=== PATIENT | male | born 1990 | race Caucasian/White ===

== ENCOUNTER 2023-01-06 07:05 | Outpatient (OUT) | payer BC, SELFPAY ==
[2023-01-06 07:24] LABS: Basophils Absolute Auto 0.1 10^3/uL (0.0-0.1); Basophils Percent Auto 0.6 % (0.2-2.0); Eosinophils Absolute Auto 0.2 10^3/uL (0.0-0.7); Eosinophils Percent Auto 2.4 % (0.9-7.0); Hematocrit 42.9 % (42.0-54.0); Hemoglobin 14.5 g/dL (14.0-18.0); Immature Granulocytes Abs Auto 0.03 10^3/uL (0.00-0.03); Immature Granulocytes Pct Auto 0.3 % (0.0-0.5); Lymphocytes Absolute Auto 3.4 10^3/uL (1.2-3.8); Lymphocytes Percent Auto 37.1 % (20.5-60.0); Mean Corpuscular HGB Conc 33.8 g/dL (29.9-35.2); Mean Corpuscular Hemoglobin 29.8 pg (25.9-34.0); Mean Corpuscular Volume 88.1 fL (80.0-94.0); Mean Platelet Volume 9.9 fL (9.5-13.5); Monocytes Absolute Auto 0.7 10^3/uL (0.3-0.8); Monocytes Percent Auto 7.1 % (1.7-12.0); Neutrophils Absolute Auto 4.8 10^3/uL (1.4-6.5); Neutrophils Percent Auto 52.5 % (43.0-75.0); Platelet Count 269 10^3/uL (150-450); Red Blood Count 4.87 10^6/uL (4.70-6.10); Red Cell Distribution Width 14.4 % (11.0-15.0); White Blood Count 9.2 10^3/uL (4.0-11.0)
[2023-01-06 08:04] LABS: Estimated Average Glucose 105 mg/dL; Glycohemoglobin A1C 5.3 % (4.5-6.2)
[2023-01-06 08:06] LABS: Alanine Aminotransferase 25 U/L (16-63); Albumin Level 3.7 g/dL (3.4-5.0); Alkaline Phosphatase 75 U/L (46-116); Anion Gap 11.7; Aspartate Amino Transferase 17 U/L (15-37); BUN Creatinine Ratio 10.6; Bilirubin Total 0.4 mg/dL (0.2-1.0); Calcium 8.7 mg/dL (8.5-10.1); Carbon Dioxide 26.4 mmol/L (21.0-32.0); Chloride 106 mmol/L (98-107); Estimated GFR (African America >60 (>=60); Estimated GFR (Non-African Ame >60 (>=60); Globulin 3.6 g/dL; Glucose 96 mg/dL (74-106); Potassium 4.1 mmol/L (3.5-5.1); Sodium 140 mmol/L (136-145); Total Protein 7.3 g/dL (6.4-8.2)
[2023-01-06 08:16] LABS: Chol HDL Ratio 5.6; Cholesterol 175 mg/dL (<=200); HDL Cholesterol 31 mg/dL (40-60); Triglycerides 228 mg/dL (<=150); VLDL CHOLESTEROL 45.6 mg/dL
[2023-01-06 08:22] LABS: Prostate Specific Antigen Scrn 0.82 ng/mL (<=4.00)
[2023-01-07 12:08] LABS: Insulin 24.2 uIU/mL (2.6-24.9)
== END 2023-01-06 07:06 | disposition home or self-care (01) ==
LOC: LAB 07:06
PROVIDERS: PCP Family Medicine; Visit Provider Family Medicine
DX: Z00.00 Encounter for general adult medical examination without abnormal findings (principal)
CPT/HCPCS: 36415; 80053; 80061; 83036; 83525; 84436; 84443; 84481; 85025; G0103

== ENCOUNTER 2023-05-31 10:49 | Outpatient (OUT) | payer SELFPAY ==
[2023-05-31 12:28] LABS: Free T3 5.52 pg/mL (2.18-3.98); Thyroid Stimulating Hormone 17.248 uIU/mL (0.358-3.740)
== END 2023-05-31 10:50 | disposition home or self-care (01) ==
PROVIDERS: PCP Family Medicine; Visit Provider Family Medicine
DX: E03.9 Hypothyroidism, unspecified (principal)
CPT/HCPCS: 36415; 84436; 84443; 84481

== ENCOUNTER 2024-01-16 15:27 | Outpatient (OUT) | payer BC, SELFPAY ==
[2024-01-16 16:11] LABS: Basophils Absolute Auto 0.1 10^3/uL (0.0-0.1); Basophils Percent Auto 0.6 % (0.2-2.0); Eosinophils Absolute Auto 0.2 10^3/uL (0.0-0.7); Hematocrit 44.4 % (42.0-54.0); Hemoglobin 15.2 g/dL (14.0-18.0); Immature Granulocytes Abs Auto 0.04 10^3/uL (0.00-0.03); Immature Granulocytes Pct Auto 0.4 % (0.0-0.5); Lymphocytes Absolute Auto 3.1 10^3/uL (1.2-3.8); Mean Corpuscular HGB Conc 34.2 g/dL (29.9-35.2); Mean Corpuscular Hemoglobin 29.9 pg (25.9-34.0); Mean Corpuscular Volume 87.4 fL (80.0-94.0); Mean Platelet Volume 10.5 fL (9.5-13.5); Monocytes Absolute Auto 0.6 10^3/uL (0.3-0.8); Monocytes Percent Auto 5.9 % (1.7-12.0); Neutrophils Absolute Auto 5.5 10^3/uL (1.4-6.5); Neutrophils Percent Auto 58.1 % (43.0-75.0); Platelet Count 248 10^3/uL (150-450); Red Blood Count 5.08 10^6/uL (4.70-6.10); Red Cell Distribution Width 13.2 % (11.0-15.0); White Blood Count 9.5 10^3/uL (4.0-11.0)
[2024-01-16 16:32] LABS: Estimated Average Glucose 103 mg/dL; Glycohemoglobin A1C 5.2 % (4.5-6.2)
[2024-01-16 17:05] LABS: Alanine Aminotransferase 30 U/L (16-63); Albumin Globulin Ratio 1.1; Albumin Level 3.7 g/dL (3.4-5.0); Alkaline Phosphatase 86 U/L (46-116); Anion Gap 13.5; Aspartate Amino Transferase 15 U/L (15-37); BUN Creatinine Ratio 10.9; Bilirubin Total 0.5 mg/dL (0.2-1.0); Calcium 8.6 mg/dL (8.5-10.1); Carbon Dioxide 26.8 mmol/L (21.0-32.0); Chloride 105 mmol/L (98-107); Chol HDL Ratio 6.1; Cholesterol 190 mg/dL (<=200); Estimated GFR (African America >60 (>=60); Estimated GFR (Non-African Ame >60 (>=60); Free T3 2.16 pg/mL (2.18-3.98); Globulin 3.4 g/dL; Glucose 90 mg/dL (74-106); HDL Cholesterol 31 mg/dL (40-60); Potassium 4.3 mmol/L (3.5-5.1); Sodium 141 mmol/L (136-145); Thyroid Stimulating Hormone 6.779 uIU/mL (0.358-3.740); Total Protein 7.1 g/dL (6.4-8.2); Triglycerides 229 mg/dL (<=150); VLDL CHOLESTEROL 45.8 mg/dL
== END 2024-01-16 15:28 | disposition home or self-care (01) ==
LOC: LAB 15:30
PROVIDERS: PCP Family Medicine; Visit Provider Family Medicine
DX: Z00.00 Encounter for general adult medical examination without abnormal findings (principal)
CPT/HCPCS: 36415; 80053; 80061; 83036; 84436; 84443; 84481; 85025

== ENCOUNTER 2024-01-17 16:39 | Outpatient (REF) | payer BC, SELFPAY ==
[2024-01-17 19:56] LABS: Internal Control Within Normal Limits; Occult Blood Negative
== END 2024-01-17 16:40 | disposition home or self-care (01) ==
LOC: LAB 16:39
PROVIDERS: PCP Family Medicine; Visit Provider Family Medicine
DX: Z00.00 Encounter for general adult medical examination without abnormal findings (principal)
CPT/HCPCS: G0328

== ENCOUNTER 2024-05-01 07:20 | Outpatient (OUT) | payer BC, SELFPAY ==
--- OUTSIDE RECORDS SUMMARY | 2024-05-01 07:28 | XMS_ITS | CCD ---
Author Organization [facility] Care Team Providers Care Manufacturer Representative Name Role Phone Emelia Langford Primary Care Provider DEVIN, PANCHO H. Referring Unavailable EMELIA LANGFORD Primary Care Unavailable DEVIN, PANCHO H. Admitting Unavailable DEVIN, PANCHO H. Attending Unavailable EMELIA LANGFORD Primary Care Unavailable DEVIN, PANCHO H. Attending Unavailable DEVIN, PANCHO H. Referring Unavailable EMELIA LANGFORD Primary Care Unavailable HOY ., DR KAPOOR Consulting Unavailable HOY ., DR KAPOOR Attending Unavailable HOY ., DR KAPOOR Admitting Unavailable HOY ., DR KAPOOR Primary Care Unavailable HOY ., DR KAPOOR Primary Care Unavailable HOY ., DR KAPOOR Consulting Unavailable HOY ., DR KAPOOR Attending Unavailable HOY ., DR KAPOOR Admitting Unavailable Allergies Allergy Classification Reported Allergen(s) Allergy Type Date of Onset Reaction(s) Facility (1 source) bee venom Propensity to adverse reactions to drug 02-08-2019 [place], [place] Medications Current Medications Medication Drug Class(es) Dates Sig (Normalized) Sig (Original) acetaminophen 325 mg / oxyCODONE hydrochloride 5 mg oral tablet (1 source) Opioid Agonist Start: 02-14-2019 End: 02-28-2019 take 1 tablet by mouth every eight hours as needed for pain, then take 1 tablet by mouth as needed for pain oxyCODONE-acetamin ophen (PERCOCET) 5-325 MG per tablet Indications: Post-op pain Take 1 tablet by mouth every 8 hours as needed for Pain for up to 14 days. Intended supply: 7 days. Take lowest dose possible to manage pain 42 tablet 0 02/14/2019 02/28/2019 Active cephalexin 500 mg oral capsule (1 source) Cephalosporin Antibacterial Start: 02-14-2019 End: 02-21-2019 take 1 capsule by mouth three times daily cephALEXin (KEFLEX) 500 MG capsule Take 1 capsule by mouth 3 times daily for 7 days 21 capsule 0 02/14/2019 02/21/2019 Active levothyroxine sodium 0.112 mg oral tablet (1 source) l-Thyroxine Start: 01-06-2019 take 1 tablet by mouth once daily levothyroxine (SYNTHROID) 112 MCG tablet Take 112 mcg by mouth daily 11 01/06/2019 Active sennosides, intermediate 8.6 mg oral tablet (1 source) Start: 02-14-2019 End: 02-28-2019 take 2 tablets by mouth twice daily senna (SENOKOT) 8.6 MG tablet Take 2 tablets by mouth 2 times daily for 14 days 56 tablet 0 02/14/2019 02/28/2019 Active Problems Active Problems Problem Classification Problem Date Documented Date Episodic/Chronic Gout and other crystal arthropathies (4 sources) Gout, unspecified; Translations: [GOUT UNSPECIFIED] Onset: 01-04-2022 Chronic Other upper respiratory infections (4 sources) Streptococcal pharyngitis; Translations: [STREPTOCOCCAL PHARYNGITIS] Onset: 09-06-2022 Episodic Residual codes; unclassified (1 source) Pain; Translations: [Pain] Episodic Spondylosis; intervertebral disc disorders; other back problems (2 sources) Prolapsed lumbar intervertebral disc; Translations: [Degeneration of lumbar intervertebral disc] Onset: 02-08-2019 02-08-2019 Chronic Thyroid disorders (1 source) Hypothyroidism, unspecified; Translations: [HYPOTHYROIDISM UNSPECIFIED] Onset: 01-06-2022 Chronic Past or Other Problems Problem Classification Problem Date Documented Da te Episodic/Chronic Diabetes mellitus without complication (1 source) Other abnormal glucose; Translations: [OTHER ABNORMAL GLUCOSE] Onset: 01-06-2022 Episodic Results Test Name Value Interpretation Reference Range Facil ity STREPT SCREENon 09-06-2022 STREP SCREEN A Positive Abnormal NEGATIVE [facility] Comment on above: Performed By: #### S SCRN #### [facility] [address] [place], [place] [address] Dr. Sol Desir INSULINon 01-05-2022 Insulin 29.6 uIU/mL Critically high 2.6-24.9 [facility] Comment on above: Performed By: #### I NSULIN #### [facility] [address] [address] [address] Sol Desir CBC AUTO DIFFon 01-04-2022 BASO # 0.0 103/ul Normal 0.0-0.1 [facility] Comment on above: Performed By: #### C BC #### [facility] [address] [address] [address] Sol Desir Basophils/100 WBC (Bld) 0.2 % Normal 0.2-2.0 [facility] Comment on above: Performed By: #### C BC #### [facility] [address] [place] [address] Dr. Sol Desir EO # 0.0 103/ul Normal 0.0-0.7 [facility] Comment on above: Performed By: #### C BC #### [facility] [address] [place] [address] Dr. Sol Desir Eosinophils/100 WBC (Bld) 0.2 % Critically low 0.9-7.0 [facility] Comment on above: Performed By: #### C BC #### [facility] [address] [place] [address] Dr. Sol Desir Erythrocyte distribution width (RBC) [Ratio] 13.3 % Normal 11.0-15.0 [facility] Comment on above: Performed By: #### C BC #### [facility] [address] [place] [address] Dr. Sol Desir Hematocrit (Bld) [Volume fraction] 41.6 % Critically low 42.0-54.0 [facility] Comment on above: Performed By: #### C BC #### [facility] [address] [place] [address] Dr. Sol Desir Hemoglobin (Bld) [Mass/Vol] 13.9 g/dL Critically low 14.0-18.0 [facility] Comment on above: Performed By: #### C BC #### [facility] [address] [place] [address] Dr. Sol Desir IG # 0.14 10e3/ul Critically high 0.00-0.03 [facility] Comment on above: Performed By: #### C BC #### [facility] [address] [place] [address] Dr. Sol Desir IG % 0.8 % Critically high 0.0-0.5 [facility] Comment on above: Performed By: #### C BC #### [facility] [address] [place] [address] Dr. Sol Desir LYMPH # 3.0 103/ul Normal 1.2-3.8 [facility] Comment on above: Performed By: #### C BC #### [facility] [address] [place] [address] Dr. Sol Desir Lymphocytes/100 WBC (Bld) 16.7 % Critically low 20.5-60.0 [facility] Comment on above: Performed By: #### C BC #### [facility] [address] [place] [address] Dr. Sol Desir MANUAL DIFF REQ NO Normal [facility] Comment on above: Performed By: #### C BC #### [facility] [address] [place] [address] Dr. Sol Desir MCH (RBC) [Entitic mass] 29.6 pg Normal 25.9-34.0 [facility] Comment on above: Performed By: #### C BC #### [facility] [address] [place] [address] Dr. Sol Desir MCHC (RBC) [Mass/Vol] 33.4 g/dL Normal 29.9-35.2 [facility] Comment on above: Performed By: #### C BC #### [facility] [address] [place] [address] Dr. Sol Desir MCV (RBC) [Entitic vol] 88.5 fL Normal 80.0-94.0 [facility] Comment on above: Performed By: #### C BC #### [facility] [address] [place] [address] Dr. Sol Desir MONO # 0.9 103/ul Critically high 0.3-0.8 [facility] Comment on above: Performed By: #### C BC #### [facility] [address] [address] [address] Sol Desir Monocytes/100 WBC (Bld) 5.0 % Normal 1.7-12.0 [facility] Comment on above: Performed By: #### C BC #### [facility] [address] [address] [address] Sol Desir NEUT # 13.8 103/ul Critically high 1.4-6.5 [facility] Comment on above: Performed By: #### C BC #### [facility] [address] [place] [address] Dr. Sol Desir Neutrophils/100 WBC (Bld) 77.1 % Critically high 43.0-75.0 [facility] Comment on above: Performed By: #### C BC #### [facility] [address] [place] [address] Dr. Sol Desir Platelet mean volume (Bld) [Entitic vol] 9.7 fL Normal 9.5-13.5 [facility] Comment on above: Performed By: #### C BC #### [facility] [address] [address] [address] Sol Desir PLT 329 103/ul Normal 150-450 [facility] Comment on above: Performed By: #### C BC #### [facility] [address] [place] [address] Dr. Sol Desir RBC 4.70 106/ul Normal 4.70-6.10 [facility] Comment on above: Performed By: #### C BC #### [facility] [address] [place] [address] Dr. Sol Desir WBC 17.9 103/ul Critically high 4.0-11.0 [facility] Comment on above: Performed By: #### C BC #### [facility] [address] [place] [address] Dr. Sol Desir FREE THYROXINE INDEX T7on FTI 1.78 Normal 1.30-4.50 [facility] Comment on above: Performed By: #### U JOSEFA, LIPID, T7, TSH, CMP #### [facility] [address] [address] [address] Sol Desir T3U 33.0 % Normal 33.0-40.0 [facility] Comment on above: Performed By: #### U JOSEFA, LIPID, T7, TSH, CMP #### [facility] [address] [address] [address] Sol Desir T4 [Mass/Vol] 5.40 ug/dL Normal 4.50-12.10 [facility] Comment on above: Performed By: #### U JOSEFA, LIPID, T7, TSH, CMP #### [facility] [address] [address] [address] Sol Desir GLYCOHEMOGLOBIN A1Con 2021 ADA RECOMMENDATION SEE BELOW Normal [facility] Comment on above: Result Comment: ADA RECOMMENDED LIMIT 4.0 - 6.0 ADA THERAPEUTIC TARGET < 7.0 ACTION SUGGESTED > 7.0 Performed By: #### A 1C #### [facility] [address] [place] [address] Dr. Sol Desir Glucose [Mass/Vol] 114 mg/dL Normal [facility] Comment on above: Performed By: #### A 1C #### [facility] [address] [address] [address] Sol Desir HbA1c (Bld) [Mass fraction] 5.6 % Normal 4.5-6.2 [facility] Comment on above: Performed By: #### A 1C #### [facility] [address] [place] [address] Dr. Sol Desir LIPID PROFILEon 01-04-2022 CHOL-HDL RATIO NORM SEE BELOW Normal [facility] Comment on above: Result Comment: 3.3 - 4.4 LOW RISK 4.4 - 7.1 AVERAGE RISK 7.1 - 11.0 MODERATE RISK >11.0 HIGH RISK Performed By: #### U JOSEFA, LIPID, T7, TSH, CMP #### [facility] [address] [address] [address] Sol Desir Cholesterol [Mass/Vol] 193 mg/dL Normal <=200 [facility] Comment on above: Performed By: #### U JOSEFA, LIPID, T7, TSH, CMP #### [facility] [address] [address] [address] Sol Desir Cholesterol in HDL [Mass/Vol] 35 mg/dL Critically low 40-60 [facility] Comment on above: Performed By: #### U JOSEFA, LIPID, T7, TSH, CMP #### [facility] [address] [address] [address] Sol Desir Cholesterol in LDL [Mass/Vol] 134.2 mg/dL Normal [facility] Comment on above: Performed By: #### U JOSEFA, LIPID, T7, TSH, CMP #### [facility] [address] [address] [address] Sol Desir Cholesterol.total/Cho lesterol in HDL [Mass ratio] 5.5 {ratio} Normal [facility] Comment on above: Performed By: #### U JOSEFA, LIPID, T7, TSH, CMP #### [facility] [address] [address] [address] Sol Desir HDL NORMAL > or = 60 mg/dl - LOW CARDIOVASCULAR RISK <40 mg/dl - HIGH CARDIOVASCULAR RISK Normal [facility] Comment on above: Performed By: #### U JOSEFA, LIPID, T7, TSH, CMP #### [facility] [address] [address] [address] Sol Desir LDL CALC NORMAL SEE BELOW Normal [facility] Comment on above: Result Comment: <100 mg/dl OPTIMAL 100 - 129 mg/dl NEAR OR ABOVE OPTIMAL 130 - 159 mg/dl BORDERLINE HIGH 160 - 189 mg/dl HIGH >190 mg/dl VERY HIGH Performed By: #### U JOSEFA, LIPID, T7, TSH, CMP #### [facility] [address] [address] [address] Sol Desir Triglyceride [Mass/Vol] 119 mg/dL Normal <=150 [facility] Comment on above: Performed By: #### U JOSEFA, LIPID, T7, TSH, CMP #### [facility] [address] [address] [address] Sol Desir VLDL CALC 23.8 mg/dL Normal [facility] Comment on above: Performed By: #### U JOSEFA, LIPID, T7, TSH, CMP #### [facility] [address] [place] [address] Dr. Sol Desir PROF 14(COMP METB)on 022 Albumin [Mass/Vol] 3.9 g/dL Normal 3.4-5.0 [facility] Comment on above: Performed By: #### U JOSEFA, LIPID, T7, TSH, CMP #### [facility] [address] [place] [address] Dr. Sol Desir Albumin/Globulin [Mass ratio] 1.2 {ratio} Normal [facility] Comment on above: Performed By: #### U JOSEFA, LIPID, T7, TSH, CMP #### [facility] [address] [place] [address] Dr. Sol Desir ALP [Catalytic activity/Vol] 71 U/L Normal 46-116 [facility] Comment on above: Performed By: #### U JOSEFA, LIPID, T7, TSH, CMP #### [facility] [address] [place] [address] Dr. Sol Desir ALT [Catalytic activity/Vol] 24 U/L Normal 16-63 [facility] Comment on above: Performed By: #### U JOSEFA, LIPID, T7, TSH, CMP #### [facility] [address] [place] [address] Dr. Sol Desir Anion gap [Moles/Vol] 7.5 mmol/L Normal [facility] Comment on above: Performed By: #### U JOSEFA, LIPID, T7, TSH, CMP #### [facility] [address] [place] [address] Dr. Sol Desir AST [Catalytic activity/Vol] 9 U/L Critically low 15-37 [facility] Comment on above: Performed By: #### U JOSEFA, LIPID, T7, TSH, CMP #### [facility] [address] [place] [address] Dr. Sol Desir Bilirubin [Mass/Vol] 0.4 mg/dL Normal 0.2-1.0 [facility] Comment on above: Performed By: #### U JOSEFA, LIPID, T7, TSH, CMP #### [facility] [address] [address] [address] Sol Desir Calcium [Mass/Vol] 8.9 mg/dL Normal 8.5-10.1 [facility] Comment on above: Performed By: #### U JOSEFA, LIPID, T7, TSH, CMP #### [facility] [address] [address] [address] Sol Desir Chloride [Moles/Vol] 107 mmol/L Normal 98-107 [facility] Comment on above: Performed By: #### U JOSEFA, LIPID, T7, TSH, CMP #### [facility] [address] [address] [address] Sol Desir CO2 [Moles/Vol] 30.6 mmol/L Normal 21.0-32.0 [facility] Comment on above: Performed By: #### U JOSEFA, LIPID, T7, TSH, CMP #### [facility] [address] [address] [address] Sol Desir Creatinine [Mass/Vol] 0.90 mg/dL Normal 0.70-1.30 [facility] Comment on above: Performed By: #### U JOSEFA, LIPID, T7, TSH, CMP #### [facility] [address] [place] [address] Dr. Sol Desir EGFR-AF WALLISIAN >60 Normal >=60 [facility] Comment on above: Performed By: #### U JOSEFA, LIPID, T7, TSH, CMP #### [facility] [address] [place] [address] Dr. Sol Desir EGFR-NON AF WALLISIAN >60 Normal >=60 [facility] Comment on above: Performed By: #### U JOSEFA, LIPID, T7, TSH, CMP #### [facility] [address] [address] [address] Sol Desir Globulin (S) [Mass/Vol] 3.3 g/dL Normal [facility] Comment on above: Performed By: #### U JOSEFA, LIPID, T7, TSH, CMP #### [facility] [address] [address] [address] Sol Desir Glucose [Mass/Vol] 97 mg/dL Normal 74-106 [facility] Comment on above: Performed By: #### U JOSEFA, LIPID, T7, TSH, CMP #### [facility] [address] [place] [address] Dr. Sol Desir Potassium [Moles/Vol] 4.1 mmol/L Normal 3.5-5.1 [facility] Comment on above: Performed By: #### U JOSEFA, LIPID, T7, TSH, CMP #### [facility] [address] [place] [address] Dr. Sol Desir Protein [Mass/Vol] 7.2 g/dL Normal 6.4-8.2 [facility] Comment on above: Performed By: #### U JOSEFA, LIPID, T7, TSH, CMP #### [facility] [address] [place] [address] Dr. Sol Desir Sodium [Moles/Vol] 141 mmol/L Normal 136-145 [facility] Comment on above: Performed By: #### U JOSEFA, LIPID, T7, TSH, CMP #### [facility] [address] [place] [address] Dr. Sol Desir Urea nitrogen [Mass/Vol] 12.0 mg/dL Normal 7.0-18.0 [facility] Comment on above: Performed By: #### U JOSEFA, LIPID, T7, TSH, CMP #### [facility] [address] [place] [address] Dr. Sol Desir Urea nitrogen/Creatinine [Mass ratio] 13.3 mg/mg Normal [facility] Comment on above: Performed By: #### U JOSEFA, LIPID, T7, TSH, CMP #### [facility] [address] [place] [address] Dr. Sol Desir TSHon 01-04-2022 TSH 0.520 uIU/mL Normal 0.358-3.740 [facility] Comment on above: Performed By: #### U JOSEFA, LIPID, T7, TSH, CMP #### [facility] [address] [place] [address] Dr. Sol Desir URIC ACID SERUMon 01-04-2022 Urate [Mass/Vol] 8.3 mg/dL Critically high 3.5-7.2 [facility] Comment on above: Performed By: #### U JOSEFA, LIPID, T7, TSH, CMP #### [facility] [address] [address] [address] Sol Desir FLUORO FOR SURGICAL PROCEDUR ESon 02-14-2019 FLUORO FOR SURGICAL PROCEDURES FLUORO FOR SURGICAL PROCEDURES : 02/14/2019 8:31 AM CLINICAL HISTORY: R52 Pain ICD10. COMPARISON: None available. Intraoperative fluoroscopy was provided for Dr. Devin aguilera. A total of 15.5 seconds of fluoroscopy was used, with 3 fluoroscopic stills saved. No diagnostic images were obtained. Please see Dr. Bell notes for completeness. Interpreted by: Bear Rivera MD Signed by: Bear Rivera MD 02/14/19 Final result Normal [facility] Fluoro For Surgical Procedur eson 02-14-2019 FLUORO FOR SURGICAL PROCEDURES : 02/14/2019 8:31 AM CLINICAL HISTORY: R52 Pain ICD10. COMPARISON: None available. Intraoperative fluoroscopy was provided for Dr. Devin aguilera. A total of 15.5 seconds of fluoroscopy was used, with 3 fluoroscopic stills saved. No diagnostic images were obtained. Please see Dr. Bell notes for completeness. [facility] [place] Incoming Radiant Results From Scotty Geare/Pacs - 02/14/2019 12:53 PM EDT FLUORO FOR SURGICAL PROCEDURES : 02/14/2019 8:31 AM CLINICAL HISTORY: R52 Pain ICD10. COMPARISON: None available. Intraoperative fluoroscopy was provided for Dr. Devin aguilera. A total of 15.5 seconds of fluoroscopy was used, with 3 fluoroscopic stills saved. No diagnostic images were obtained. Please see Dr. Bell notes for completeness. [facility] Surgical Specimenon 02-15-20 Surgical Specimen 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 MENAES/VAISHALI CLINICAL INFORMATION: Disk herniation, radiculopathy, degenerative disk disease. SPECIMEN: Disc GROSS DESCRIPTION: The specimen container is labeled with the patient's name and designated spine. In formalin are multiple irregular fragments of tolliver and pink rubbery to firm tissue, measuring in aggregate 2.5 x 2 x 0.4 cm. Majority of tissue is submitted in one cassette after decalcification. APPLE/LETICIA CPT: 93193 X1 33769 X1 REBECA GUILLEN M.D. 02/19/2019 Electronically signed out by Page 1 of 1 [facility] Comment on above: Performed By: #### S UR #### [facility] [address] [place] [address] Basic Metabolic Panelon 08- Anion gap [Moles/Vol] 12 mmol/L Normal 9-15 [facility] Comment on above: Performed By: #### B MP #### [facility] [address] [place] [address] Calcium [Mass/Vol] 9.3 mg/dL Normal 8.5-9.9 [facility] Comment on above: Performed By: #### B MP #### [facility] [address] [place] [address] Chloride [Moles/Vol] 106 mmol/L Normal 95-107 [facility] [place] Comment on above: Performed By: #### B MP #### [facility] [address] [place] [address] CO2 [Moles/Vol] 22 mmol/L Normal 20-31 [facility] Comment on above: Performed By: #### B MP #### [facility] [address] [place] [address] Creatinine [Mass/Vol] 0.80 mg/dL Normal 0.70-1.20 [facility] Comment on above: Performed By: #### B MP #### [facility] [address] [place] [address] GFR/1.73 sq M predicted among blacks MDRD (S/P/Bld) [Vol rate/Area] mL/min/{1.73_m2} Normal >60 [facility] Comment on above: Result Comment: >60 mL/min/1.73m2 EGFR, calc. for ages 18 and older using the MDRD formula (not corrected for weight), is valid for stable renal function. Performed By: #### B MP #### [facility] [address] [place] [address] GFR/1.73 sq M.predicted MDRD (S/P/Bld) [Vol rate/Area] mL/min/{1.73_m2} Normal >60 [facility] Comment on above: Result Comment: >60 mL/min/1.73m2 EGFR, calc. for ages 18 and older using the MDRD formula (not corrected for weight), is valid for stable renal function. Performed By: #### B MP #### [facility] [address] [place] [address] Glucose [Mass/Vol] 107 mg/dL Critically high 70-99 [facility] Comment on above: Performed By: #### B MP #### [facility] [address] [place] [address] Potassium [Moles/Vol] 3.9 mmol/L Normal 3.4-4.9 [facility] Comment on above: Performed By: #### B MP #### [facility] [address] [place] [address] Sodium [Moles/Vol] 140 mmol/L Normal 135-144 [facility] Comment on above: Performed By: #### B MP #### [facility] [address] [place] [address] Urea nitrogen [Mass/Vol] 12 mg/dL Normal 6-20 [facility] Comment on above: Performed By: #### B MP #### [facility] [address] [place] [address] CBC With Platelet No Differe ntialon 02-08-2019 Erythrocyte distribution width (RBC) [Ratio] 13.6 % Normal 11.5-14.5 [facility] Comment on above: Performed By: #### C BCND #### [facility] [address] [place] [address] Hematocrit (Bld) [Volume fraction] 41.3 % Low 42.0-52.0 [facility] Comment on above: Performed By: #### C BCND #### [facility] [address] [place] [address] Hemoglobin (Bld) [Mass/Vol] 14.6 g/dL Normal 14.0-18.0 [facility] Comment on above: Performed By: #### C BCND #### [facility] [address] [place] [address] MCH (RBC) [Entitic mass] 31.0 pg Normal 27.0-31.3 [facility] Comment on above: Performed By: #### C BCND #### [facility] [address] [place] [address] MCHC (RBC) [Mass/Vol] 35.3 % Normal 33.0-37.0 [facility] Comment on above: Performed By: #### C BCND #### [facility] [address] [place] [address] MCV (RBC) [Entitic vol] 87.7 fL Normal 80.0-100.0 [facility] Comment on above: Performed By: #### C BCND #### [facility] [address] [place] [address] Platelets (Bld) [#/Vol] 229 10*3/uL Normal 130-400 [facility] Comment on above: Performed By: #### C BCND #### [facility] [address] [place] [address] RBC (Bld) [#/Vol] 4.71 10*6/uL Normal 4.70-6.10 [facility] Comment on above: Performed By: #### C BCND #### [facility] [address] [place] [address] WBC (Bld) [#/Vol] 9.9 10*3/uL Normal 4.8-10.8 [facility] Comment on above: Performed By: #### C BCND #### [facility] [address] [place] [address] Partial Thromboplastin Timeo n 02-08-2019 aPTT Coag (Bld) [Time] 28.2 s Normal 24.4-36.8 [facility] Comment on above: Result Comment: Effe ctive 01/24/2019: Please note methodology and/or reference ranges have changed. aPTT - Heparin Therapeutic Range: 74.0 - 106 seconds. Performed By: #### P TT #### [facility] [address] [place] [address] Prothrombin Timeon 9 INR Coag (PPP) [Relative time] 1.0 {INR} Normal [facility] Comment on above: Result Comment: Warf levon Therapy INR Therapeutic: 2.0-3.0 With Mechanical Valve: >2.5 Low-intensity Therapeutic Range: 1.5-2.0 Mod-intensity Therapeutic Range: 2.0-3.0 High-intensity Therapeutic Range: 2.5-3.5 HIgh-intensity Therapeutic Range: 3.0-4.0 Common Critical/Alarm Value: 5.0 Common Upper Limit Reported: 10.0 Effective 01/17/2019: Please note methodology and/or reference ranges have changed. Performed By: #### P T #### [facility] [address] [place] [address] PT Coag (PPP) [Time] 13.0 s Normal 12.3-14.9 [facility] ([place], [place]) Comment on above: Result Comment: Effe ctive 01/17/19 Please note methodology and/or reference ranges have changed. Performed By: #### P T #### [facility] [address] [place] [address] Type and Screen Capture 3 sc rn cellon 02-08-2019 Type and Screen Capture 3 scrn cell PATIENT: RHINA Tarango LOC: [facility] BILL# : [id number] : 1990 SEX: M ORDERED BY: TJ Nicholson ORDERED : 02/08/2019 11:03 COLLECTED: 02/08/2019 11:13 ORDER : [id number] RECEIVED : 02/08/2019 11:13 TEST NAME RESULT UNITS RANGES ABN FL ST ABORH Capture A NEG F Antibody 3 Cell Scrn Captu NEG F Normal [facility] Comment on above: Performed By: #### T S3C #### [facility] [address] [place] [address] Encounters Encounter Date Encounter Type Care Provider Facility Start: 09-06-2022 End: 09-06-[address] EMELIA LANGFORD . Facility:[facility] Start: 01-04-2022 End: 01-05-[address] EMELIA LANGFORD . Facility:[facility] Start: 02-14-2019 End: 02-14-2019 Patient encounter procedure PANCHO Graham [facility] Start: 02-14-2019 End: 02-17-2019 Patient encounter procedure PANCHO Kathe [facility] Start: 02-14-2019 End: 02-16-2019 Subsequent hospital visit by physician Pancho Beltran Work Phone: [facility] Comment on above: Pain Start: 02-08-2019 End: 02-13-2019 Patient encounter procedure PANCHO Gladys QUEENO [facility] Procedures Date Procedure Procedure Detail Performing Clinician Start: 02-14-2019 INCENTIVE SPIROMETRY RT PANCHO DEVIN Start: 02-14-2019 DISCHARGE PATIENT PANCHO YO O Start: 02-14-2019 FLUORO FOR SURGICAL PROCEDURES PANCHO DEVIN Start: 02-14-2019 INCENTIVE SPIROMETRY RT PANCHO DEVIN Start: 02-14-2019 Level iv surg pathol ogy gross&microscopic exam PANCHO DEVIN Start: 02-14-2019 ASSESS PANCHO DEVIN Start: 02-14-2019 BEDREST PANCHO DEVIN Start: 02-14-2019 Continuous pulse oximetry PNACHO DEVIN Start: 02-14-2019 ENCOURAGE DEEP BREAT KAYA AND COUGHING PANCHO DEVIN Start: 02-14-2019 INCENTIVE SPIROMETRY RT PANCHO DEVIN Start: 02-14-2019 NEURO/VASCULAR CHECKS B O DEVIN Start: 02-14-2019 NURSING COMMUNICATION B O DEVIN Start: 02-14-2019 FLUORO FOR SURGICAL PROCEDURES Pancho Beltran Work Phone: Start: 02-14-2019 DIET NPO, NOW PANCHO DEVIN Start: 02-14-2019 GRADUAL COMPRESSION STOCKINGS (CUCA) PANCHO DEVIN Start: 02-14-2019 PLACE INTERMITTENT PNEUMATIC COMPRESSION DEVICE PANCHO DEVIN Start: 02-14-2019 INITIATE OXYGEN THER APY PROTOCOL PANCHO DEVIN Start: 02-14-2019 NOTIFY PHYSICIAN (SPECIFY) PANCHO DEVIN Start: 02-14-2019 PULSE OXIMETRY SPOT CHECK PANCHO DEVIN Start: 02-14-2019 VITAL SIGNS PANCHO DEVIN Start: 02-08-2019 Basic metabolic pane l calcium total PANCHO DEVIN Start: 02-08-2019 Blood count complete automated PANCHO DEVIN Start: 02-08-2019 Prothrombin time PANCHO DEVIN Start: 02-08-2019 Thromboplastin time partial plasma/whole blood PANCHO DEVIN Start: 02-08-2019 TYPE AND SCREEN PANCHO DEVIN Plan of Treatment Date Care Activity Detail Author Start: 03-10-2019 Influenza vaccination Flu vaccine (# 1) [facility], [place] Start: 03-05-2019 End: 03-05-2019 Office Visit 03/05/2019 Office Visit Neurosurgery Pancho Beltran MD [address], [address] [place] [address] [phone] [employer] Start: 2008 DTaP/Tdap/Td vaccine (1 - Tdap) DTaP/Tdap/Td vaccine (1 - Tdap) [place], [place] Start: 2004 HIV screen HIV screen [place], [place] Start: 2002 Varicella Vaccine (1 of 2 - 13+ 2-dose series) Varicella Vaccine (1 of 2 - 13+ 2-dose series) [place], [place] Payers Date Payer Category Payer Unknown [employer] xxxxxxxxx 2018-Present [phone] [address] [place] [address] xxxxxxxxx [id number] 2018 Unknown [id number] 1989 Unknown [id number] 1989 Unknown [id number] 1989 Unknown [id number] 1989 Unknown [id number] 1989 Unknown [id number] 1960 Medicaid [id number] 1960 Unknown [id number] Social History Date Type Detail Facility Start: 02-08-2019 Tobacco smoking status NHIS Never sm silvino [place], [place] Start: 02-08-2019 Alcohol intake Yes [place], [place] Start: 02-08-2019 Alcohol Comment social [facility] [place], [place] Sex Assigned At Not on file [place], [place] Reason for Referral Status Reason Specialty Diagnoses / Procedures Referre d By Contact Referred To Contact [facility] Diagnoses Pain Procedures Fluoro For Surgical Procedures Pancho Beltran MD [address], [address] [place] [address] Assessments Diagnosis Pain Generalized pain Advance Directives No Advanced Directives Records FoundDocuments on File Type Date Recorded Patient Order Tracer Expl anation Advance Directives and Living Will Power of Mud Analysis Supervisor Summary Purpose Family History No Family History Records FoundNo Family History Records Found Additional Source Comments Reason for Visit (unrecogniz ed section and content) Status Reason Specialty Diagnoses / Procedures Re ferred By Contact Referred To Contact Diagnoses DISC HERNIATION, RADICULOPATHY, DEGENERATIVE DISC DISEASE Procedures PATEL W/O FACETEC FORAMOT/DSKC 1/2 VRT SEG, LUMBAR L5-S1 MICRODISKECTOMY 1 HOUR/ 1 C-ARM/ X-TUBE/ SCOPE Pancho Beltran MD [address], [address] [place] [address] [facility] (unrecognized sect ion and content) No Status Records FoundNo Status Records Found INFORMATION SOURCE (unrecogn ized section and content) DATE CREATED AUTHOR 02/23/2019 [facility] [place] [place] DATE CREATED AUTHOR AUTHOR'S ORGANIZ ATION 09/14/2022 [facility] FOR RECORDS PERTAINING TO PATIENTS WHO ARE OR HAVE BEEN ENROLLED IN A CHEMICAL DEPENDENCY/SUBSTANCEABUSE PROGRAM, SOME INFORMATION MAY BE OMITTED. This clinical summary was aggregated from multiple sources. Caution should be exercised in using it in the provision of clinical care. This summary normalizes information from multiple sources, and as a consequence, information in this document may materially change the coding, format and clinical context of patient data. In addition, data may be omitted in some cases. CLINICAL DECISIONS SHOULD BE BASED ON THE PRIMARY CLINICAL RECORDS. [employer] provides no warranty or guarantee of the accuracy or completeness of information in this document.
[2024-05-01 17:02] LABS: Free T3 3.07 pg/mL (2.18-3.98); Thyroid Stimulating Hormone 7.759 uIU/mL (0.358-3.740)
== END 2024-05-01 07:21 | disposition home or self-care (01) ==
LOC: LAB 07:25
PROVIDERS: PCP Family Medicine; Visit Provider Family Medicine
DX: E03.9 Hypothyroidism, unspecified (principal)
CPT/HCPCS: 36415; 84436; 84443; 84481

== ENCOUNTER 2024-08-02 12:12 | Outpatient (OUT) | payer BC, SELFPAY ==
--- OUTSIDE RECORDS SUMMARY | 2024-08-02 12:31 | XMS_ITS | CCD ---
Author Organization [facility] Care Team Providers Care Plant Technician Name Role Phone Emelia Langford Primary Care Provider [phone] DEVIN, PANCHO H. Referring Unavailable EMELIA LANGFORD [...] Unavailable HOY ., DR KAPOOR Admitting Unavailable Unavailable Primary Care Provider UnavailROMAN Landon Attending Unavailable Allergies Allergy Classification Reported Allergen(s) Allergy Type Date of Onset Reaction(s) Facility (1 source) bee venom Propensity to adverse reactions to drug 02-08-2019 [place], [place] (2 sources) POISON VEDA EXTRACT; Translations: [POISON VEDA EXTRACT] Drug Allergy 07-30-2024 [facility] Medications Current Medications Medication Drug Class(es) Dates [...] capsule 0 02/14/2019 02/21/2019 Active levothyroxine sodium 0.15 mg oral tablet (2 sources) l-Thyroxine Start: 07-28-2024 take 1 tablet by mouth in the morning levothyroxine (SYNTHROID, LEVOTHROID) 150 MCG tablet Take 1 tablet (150 mcg total) by mouth in the morning. 07/28/2024 Active Start: 01-06-2019 take 1 tablet by jose th once daily levothyroxine (SYNTHROID) 112 MCG tablet Take 112 mcg by mouth daily 11 01/06/2019 Active liothyronine sodium 0.025 mg oral tablet (1 source) l-Triiodothyronine Start: 07-28-2024 take 1 tablet by mouth in the morning liothyronine (CYTOMEL) 25 MCG tablet Take 1 tablet (25 mcg total) by mouth in the morning. 07/28/2024 Active sennosides, long-term 8.6 mg oral tablet (1 source) Start: 02-14-2019 End: 02-28-2019 take 2 tablets by mouth twice daily senna (SENOKOT) 8.6 MG tablet Take 2 tablets by mouth 2 times daily for 14 days 56 tablet 0 02/14/2019 02/28/2019 Active Problems Active Problems Problem Classification Problem Date Documented Date Episodic/Chronic Contraceptive and procreative management (3 sources) Patient encounter status; Translations: [Encounter for other general counseling and advice on contraception] Onset: 07-30-2024 07-30-2024 Episodic Gout and other crystal arthropathies (4 sources) [...] unspecified; Translations: [HYPOTHYROIDISM UNSPECIFIED] Onset: 01-06-2022 Chronic Unclassified (1 source) Sterilization Onset: 07-30-2024 Past or Other Problems Problem Classification Problem Date Documented Da te Episodic/Chronic Diabetes mellitus without complication (1 source) Other abnormal glucose; Translations: [OTHER ABNORMAL GLUCOSE] Onset: 01-06-2022 Episodic Results Test Name Value Interpretation Reference Range Facil ity STREPT SCREENon 09-06-2022 STREP SCREEN A Positive Abnormal NEGATIVE [facility] Comment on above: Performed By: #### S SCRN #### [facility] [address] [place] [address] Dr. Sol Desir INSULINon 01-05-2022 Insulin 29.6 uIU/mL Critically high 2.6-24.9 [facility] Comment on above: Performed By: #### I NSULIN #### [facility] [address] [place] [address] Dr. Sol Desir CBC AUTO DIFFon 01-04-2022 BASO # 0.0 103/ul Normal 0.0-0.1 [facility] Comment on above: Performed By: #### C BC #### [facility] [address] [place] [address] Dr. Sol Desir Basophils/100 WBC (Bld) 0.2 % Normal 0.2-2.0 [facility] Comment on above: Performed By: #### C BC #### [facility] [address] [address] [address] Sol Desir EO # 0.0 103/ul Normal 0.0-0.7 [facility] Comment on above: Performed By: #### C BC #### [facility] [address] [place] [address] Dr. Sol Desir Eosinophils/100 WBC (Bld) 0.2 % Critically low 0.9-7.0 [facility] Comment on above: Performed By: #### C BC #### [facility] [address] [place] [address] Dr. Sol Desir Erythrocyte distribution width (RBC) [Ratio] 13.3 % Normal 11.0-15.0 [facility] Comment on above: Performed By: #### C BC #### [facility] [address] [place] [address] Dr. Sol Desir Hematocrit (Bld) [Volume fraction] 41.6 % Critically low 42.0-54.0 [facility] Comment on above: Performed By: #### C BC #### [facility] [address] [place] [address] Dr. Sol Desir Hemoglobin (Bld) [Mass/Vol] 13.9 g/dL Critically low 14.0-18.0 [facility] Comment on above: Performed By: #### C BC #### [facility] [address] [place] [address] Dr. Sol Desir IG # 0.14 10e3/ul Critically high 0.00-0.03 [facility] Comment on above: Performed By: #### C BC #### [facility] [address] [place] [address] Dr. Sol Desir IG % 0.8 % Critically high 0.0-0.5 [facility] Comment on above: Performed By: #### C BC #### [facility] [address] [place] [address] Dr. Sol Desir LYMPH # 3.0 103/ul Normal 1.2-3.8 [facility] Comment on above: Performed By: #### C BC #### [facility] [address] [place] [address] Dr. Sol Desir Lymphocytes/100 WBC (Bld) 16.7 % Critically low 20.5-60.0 [facility] Comment on above: Performed By: #### C BC #### [facility] [address] [place] [address] Dr. Sol Desir MANUAL DIFF REQ NO Normal [facility] Comment on above: Performed By: #### C BC #### [facility] [address] [place] [address] Dr. Sol Desir MCH (RBC) [Entitic mass] 29.6 pg Normal 25.9-34.0 [facility] Comment on above: Performed By: #### C BC #### [facility] [address] [address] [address] Sol Desir MCHC (RBC) [Mass/Vol] 33.4 g/dL Normal 29.9-35.2 [facility] Comment on above: Performed By: #### C BC #### [facility] [address] [address] [address] Sol Desir MCV (RBC) [Entitic vol] 88.5 fL Normal 80.0-94.0 [facility] Comment on above: Performed By: #### C BC #### [facility] [address] [place] [address] Dr. Sol Desir MONO # 0.9 103/ul Critically high 0.3-0.8 [facility] Comment on above: Performed By: #### C BC #### [facility] [address] [place] [address] Dr. Sol Desir Monocytes/100 WBC (Bld) 5.0 % Normal 1.7-12.0 [facility] Comment on above: Performed By: #### C BC #### [facility] [address] [place] [address] Dr. Sol Desir NEUT # 13.8 103/ul Critically high 1.4-6.5 [facility] Comment on above: Performed By: #### C BC #### [facility] [address] [place] [address] Dr. Sol Desir Neutrophils/100 WBC (Bld) 77.1 % Critically high 43.0-75.0 [facility] Comment on above: Performed By: #### C BC #### [facility] [address] [place] [address] Dr. Sol Desir Platelet mean volume (Bld) [Entitic vol] 9.7 fL Normal 9.5-13.5 [facility] Comment on above: Performed By: #### C BC #### [facility] [address] [place] [address] Dr. Sol Desir PLT 329 103/ul Normal 150-450 [facility] Comment on above: Performed By: #### C BC #### [facility] [address] [address] [address] Sol Desir RBC 4.70 106/ul Normal 4.70-6.10 [facility] Comment on above: Performed By: #### C BC #### [facility] [address] [address] [address] Sol Desir WBC 17.9 103/ul Critically high 4.0-11.0 [facility] Comment on above: Performed By: #### C BC #### [facility] [address] [address] [address] Sol Desir FREE THYROXINE INDEX T7on FTI 1.78 Normal 1.30-4.50 [facility] Comment on above: Performed By: #### U JOSEFA, LIPID, T7, TSH, CMP #### [facility] [address] [place] [address] Dr. Sol Desir T3U 33.0 % Normal 33.0-40.0 [facility] Comment on above: Performed By: #### U JOSEFA, LIPID, T7, TSH, CMP #### [facility] [address] [address] [address] Sol Desir T4 [Mass/Vol] 5.40 ug/dL Normal 4.50-12.10 [facility] Comment on above: Performed By: #### U JOSEFA, LIPID, T7, TSH, CMP #### [facility] [address] [address] [address] Sol Desir GLYCOHEMOGLOBIN A1Con 2021 ADA RECOMMENDATION SEE BELOW Normal [facility] Comment on above: Result Comment: ADA RECOMMENDED LIMIT 4.0 - 6.0 ADA THERAPEUTIC TARGET < 7.0 ACTION SUGGESTED > 7.0 Performed By: #### A 1C #### [facility] [address] [place] [address] Dr. Sol Desir Glucose [Mass/Vol] 114 mg/dL Normal [facility] Comment on above: Performed By: #### A 1C #### [facility] [address] [address] [address] Sol Desir HbA1c (Bld) [Mass fraction] 5.6 % Normal 4.5-6.2 [facility] Comment on above: Performed By: #### A 1C #### [facility] [address] [address] [address] Sol Desir LIPID PROFILEon 01-04-2022 CHOL-HDL RATIO NORM SEE BELOW Normal [facility] Comment on above: Result Comment: 3.3 - 4.4 LOW RISK 4.4 - 7.1 AVERAGE RISK 7.1 - 11.0 MODERATE RISK >11.0 HIGH RISK Performed By: #### U JOSEFA, LIPID, T7, TSH, CMP #### [facility] [address] [address] [address] Sol Desir Cholesterol [Mass/Vol] 193 mg/dL Normal <=200 [facility] Comment on above: Performed By: #### U JOSEFA, LIPID, T7, TSH, CMP #### [facility] [address] [address] [address] Sol Desir Cholesterol in HDL [Mass/Vol] 35 mg/dL Critically low 40-60 [facility] Comment on above: Performed By: #### U JOSEFA, LIPID, T7, TSH, CMP #### [facility] [address] [address] [address] Sol Desir Cholesterol in LDL [Mass/Vol] 134.2 mg/dL Normal [facility] Comment on above: Performed By: #### U JOSEFA, LIPID, T7, TSH, CMP #### [facility] [address] [address] [address] Sol Desir Cholesterol.total/Cho lesterol in HDL [Mass ratio] 5.5 {ratio} Normal [facility] Comment on above: Performed By: #### U JOSEFA, LIPID, T7, TSH, CMP #### [facility] [address] [address] [address] Sol Desir HDL NORMAL > or = 60 mg/dl - LOW CARDIOVASCULAR RISK <40 mg/dl - HIGH CARDIOVASCULAR RISK Normal [facility] Comment on above: Performed By: #### U JOSEFA, LIPID, T7, TSH, CMP #### [facility] [address] [address] [address] Sol Desir LDL CALC NORMAL SEE BELOW Normal [facility] Comment on above: Result Comment: <100 mg/dl OPTIMAL 100 - 129 mg/dl NEAR OR ABOVE OPTIMAL 130 - 159 mg/dl BORDERLINE HIGH 160 - 189 mg/dl HIGH >190 mg/dl VERY HIGH Performed By: #### U JOSEFA, LIPID, T7, TSH, CMP #### [facility] [address] [address] [address] Sol Desir Triglyceride [Mass/Vol] 119 mg/dL Normal <=150 [facility] Comment on above: Performed By: #### U JOSEFA, LIPID, T7, TSH, CMP #### [facility] [address] [address] [address] Sol Desir VLDL CALC 23.8 mg/dL Normal [facility] Comment on above: Performed By: #### U JOSEFA, LIPID, T7, TSH, CMP #### [facility] [address] [address] [address] Sol Desir PROF 14(COMP METB)on 022 Albumin [Mass/Vol] 3.9 g/dL Normal 3.4-5.0 [facility] Comment on above: Performed By: #### U JOSEFA, LIPID, T7, TSH, CMP #### [facility] [address] [address] [address] Sol Desir Albumin/Globulin [Mass ratio] 1.2 {ratio} Normal [facility] Comment on above: Performed By: #### U JOSEFA, LIPID, T7, TSH, CMP #### [facility] [address] [address] [address] Sol Desir ALP [Catalytic activity/Vol] 71 U/L Normal 46-116 [facility] Comment on above: Performed By: #### U JOSEFA, LIPID, T7, TSH, CMP #### [facility] [address] [address] [address] Sol Desir ALT [Catalytic activity/Vol] 24 U/L Normal 16-63 [facility] Comment on above: Performed By: #### U JOSEFA, LIPID, T7, TSH, CMP #### [facility] [address] [address] [address] Sol Desir Anion gap [Moles/Vol] 7.5 mmol/L Normal [facility] Comment on above: Performed By: #### U JOSEFA, LIPID, T7, TSH, CMP #### [facility] [address] [address] [address] Sol Desir AST [Catalytic activity/Vol] 9 U/L Critically low 15-37 [facility] Comment on above: Performed By: #### U JOSEFA, LIPID, T7, TSH, CMP #### [facility] [address] [address] [address] Sol Desir Bilirubin [Mass/Vol] 0.4 mg/dL Normal 0.2-1.0 [facility] Comment on above: Performed By: #### U JOSEFA, LIPID, T7, TSH, CMP #### [facility] [address] [place] [address] Dr. Sol Desir Calcium [Mass/Vol] 8.9 mg/dL Normal 8.5-10.1 [facility] Comment on above: Performed By: #### U JOSEFA, LIPID, T7, TSH, CMP #### [facility] [address] [address] [address] Sol Desir Chloride [Moles/Vol] 107 mmol/L Normal 98-107 [facility] Comment on above: Performed By: #### U JOSEFA, LIPID, T7, TSH, CMP #### [facility] [address] [address] [address] Sol Desir CO2 [Moles/Vol] 30.6 mmol/L Normal 21.0-32.0 [facility] Comment on above: Performed By: #### U JOSEFA, LIPID, T7, TSH, CMP #### [facility] [address] [place] [address] Dr. Sol Desir Creatinine [Mass/Vol] 0.90 mg/dL Normal 0.70-1.30 [facility] Comment on above: Performed By: #### U JOSEFA, LIPID, T7, TSH, CMP #### [facility] [address] [address] [address] Sol Desir EGFR-AF NEW ZEALANDER >60 Normal >=60 [facility] Comment on above: Performed By: #### U JOSEFA, LIPID, T7, TSH, CMP #### [facility] [address] [address] [address] Sol Desir EGFR-NON AF NEW ZEALANDER >60 Normal >=60 [facility] Comment on above: Performed By: #### U JOSEFA, LIPID, T7, TSH, CMP #### [facility] [address] [address] [address] Sol Desir Globulin (S) [Mass/Vol] 3.3 g/dL Normal [facility] Comment on above: Performed By: #### U JOSEFA, LIPID, T7, TSH, CMP #### [facility] [address] [address] [address] Sol Desir Glucose [Mass/Vol] 97 mg/dL Normal 74-106 [facility] Comment on above: Performed By: #### U JOSEFA, LIPID, T7, TSH, CMP #### [facility] [address] [address] [address] Sol Desir Potassium [Moles/Vol] 4.1 mmol/L Normal 3.5-5.1 [facility] Comment on above: Performed By: #### U JOSEFA, LIPID, T7, TSH, CMP #### [facility] [address] [address] [address] Sol Desir Protein [Mass/Vol] 7.2 g/dL Normal 6.4-8.2 [facility] Comment on above: Performed By: #### U JOSEFA, LIPID, T7, TSH, CMP #### [facility] [address] [address] [address] Sol Desir Sodium [Moles/Vol] 141 mmol/L Normal 136-145 [facility] Comment on above: Performed By: #### U JOSEFA, LIPID, T7, TSH, CMP #### [facility] [address] [address] [address] Sol Desir Urea nitrogen [Mass/Vol] 12.0 mg/dL Normal 7.0-18.0 [facility] Comment on above: Performed By: #### U JOSEFA, LIPID, T7, TSH, CMP #### [facility] [address] [address] [address] Sol Desir Urea nitrogen/Creatinine [Mass ratio] 13.3 mg/mg Normal [facility] Comment on above: Performed By: #### U JOSEFA, LIPID, T7, TSH, CMP #### [facility] [address] [address] [address] Sol Desir TSHon 01-04-2022 TSH 0.520 uIU/mL Normal 0.358-3.740 [facility] Comment on above: Performed By: #### U JOSEFA, LIPID, T7, TSH, CMP #### [facility] [address] [address] [address] Sol Desir URIC ACID SERUMon 01-04-2022 Urate [Mass/Vol] 8.3 mg/dL Critically high 3.5-7.2 [facility] Comment on above: Performed By: #### U JOSEFA, LIPID, T7, TSH, CMP #### [facility] [address] [address] [address] Sol Desir FLUORO FOR SURGICAL PROCEDUR [...] Bear Rivera MD 02/14/19 Final result Normal [facility] Fluoro For Surgical Procedur eson 02-14-2019 FLUORO FOR SURGICAL PROCEDURES : 02/14/2019 8:31 AM CLINICAL HISTORY: R52 Pain ICD10. COMPARISON: None available. Intraoperative fluoroscopy was provided for Dr. Devin aguilera. A total of 15.5 seconds of fluoroscopy was used, with 3 fluoroscopic stills saved. No diagnostic images were obtained. Please see Dr. Yoosurgical notes for completeness. [facility] [place] Incoming Radiant Results From [employer] [facility] - 02/14/2019 12:53 PM EDT FLUORO FOR SURGICAL PROCEDURES : 02/14/2019 8:31 AM CLINICAL HISTORY: R52 Pain ICD10. COMPARISON: None available. Intraoperative fluoroscopy was provided for Dr. Beltran procedure. A total of 15.5 seconds of fluoroscopy was used, with 3 fluoroscopic stills saved. No diagnostic images were obtained. Please see Dr. Bell notes for completeness. 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 SIVES/SIVES CLINICAL INFORMATION: Disk herniation, radiculopathy, degenerative disk disease. SPECIMEN: Disc GROSS DESCRIPTION: The specimen container is labeled with the patient's name and designated spine. In formalin are multiple irregular fragments of tolliver and pink rubbery to firm tissue, measuring in aggregate 2.5 x 2 x 0.4 cm. Majority of tissue is submitted in one cassette after decalcification. APPLE/LETICIA CPT: 35152 X1 65472 X1 REBECA GUILLEN M.D. 02/19/2019 Electronically signed out by Page 1 of 1 [facility] Comment on above: Performed By: #### S UR #### [facility] [address] [address] Basic Metabolic Panelon Anion gap [Moles/Vol] 12 mmol/L Normal 9-15 [facility] Comment on above: Performed By: #### B MP #### [facility] [address] [facility] [address] Calcium [Mass/Vol] 9.3 mg/dL Normal 8.5-9.9 [facility] Comment on above: Performed By: #### B MP #### [facility] [address] [place] [address] Chloride [Moles/Vol] 106 mmol/L Normal 95-107 [facility] Comment on above: Performed By: #### B MP #### [facility] [address] [place] [address] CO2 [Moles/Vol] 22 mmol/L Normal 20-31 [facility] Comment on above: Performed By: #### B MP #### [facility] [address] [place] [address] Creatinine [Mass/Vol] 0.80 mg/dL Normal 0.70-1.20 [facility] Comment on above: Performed By: #### B MP #### [facility] [address] [place] [address] GFR/1.73 sq M predicted among blacks MDRD (S/P/Bld) [Vol rate/Area] mL/min/{1.73_m2} Normal >60 [facility] Comment on above: Result Comment: >60 mL/min/1.73m2 EGFR, calc. for ages 18 and older using the MDRD formula (not corrected for weight), is valid for stable renal function. Performed By: #### B MP #### [facility] [address] [place] [address] GFR/1.73 sq M.predicted MDRD (S/P/Bld) [Vol rate/Area] mL/min/{1.73_m2} Normal >60 [facility] Comment on above: Result Comment: >60 mL/min/1.73m2 EGFR, calc. for ages 18 and older using the MDRD formula (not corrected for weight), is valid for stable renal function. Performed By: #### B MP #### [facility] [address] [place] [address] Glucose [Mass/Vol] 107 mg/dL Critically high 70-99 [facility] Comment on above: Performed By: #### B MP #### [facility] [address] [place] [address] Potassium [Moles/Vol] 3.9 mmol/L Normal 3.4-4.9 [facility] Comment on above: Performed By: #### B MP #### [facility] [address] [place] [address] Sodium [Moles/Vol] 140 mmol/L Normal 135-144 [facility] Comment on above: Performed By: #### B MP #### [facility] [address] [place] [address] Urea nitrogen [Mass/Vol] 12 mg/dL Normal 6-20 [facility] Comment on above: Performed By: #### B MP #### [facility] [address] [place] [address] CBC With Platelet No Differe ntialon 02-08-2019 Erythrocyte distribution width (RBC) [Ratio] 13.6 % Normal 11.5-14.5 [facility] Comment on above: Performed By: #### C BCND #### [facility] [address] [place] [address] Hematocrit (Bld) [Volume fraction] 41.3 % Low 42.0-52.0 [facility] Comment on above: Performed By: #### C BCND #### [facility] [address] [place] [address] Hemoglobin (Bld) [Mass/Vol] 14.6 g/dL Normal 14.0-18.0 [facility] Comment on above: Performed By: #### C BCND #### [facility] [address] [place] [address] MCH (RBC) [Entitic mass] 31.0 pg Normal 27.0-31.3 [facility] Comment on above: Performed By: #### C BCND #### [facility] [address] [place] [address] MCHC (RBC) [Mass/Vol] 35.3 % Normal 33.0-37.0 [facility] Comment on above: Performed By: #### C BCND #### [facility] [address] [place] [address] MCV (RBC) [Entitic vol] 87.7 fL Normal 80.0-100.0 [facility] Comment on above: Performed By: #### C BCND #### [facility] [address] [place] [address] Platelets (Bld) [#/Vol] 229 10*3/uL Normal 130-400 [facility] Comment on above: Performed By: #### C BCND #### [facility] [address] [place] [address] RBC (Bld) [#/Vol] 4.71 10*6/uL Normal 4.70-6.10 [facility] Comment on above: Performed By: #### C BCND #### [facility] [address] [place] [address] WBC (Bld) [#/Vol] 9.9 10*3/uL Normal 4.8-10.8 [facility] Comment on above: Performed By: #### C BCND #### [facility] [address] [place] [address] Partial Thromboplastin Timeo n 02-08-2019 aPTT Coag (Bld) [Time] 28.2 s Normal 24.4-36.8 [facility] Comment on above: Result Comment: Effe ctive 01/24/2019: Please note methodology and/or reference ranges have changed. aPTT - Heparin Therapeutic Range: 74.0 - 106 seconds. Performed By: #### P TT #### [facility] [address] [place] [address] Prothrombin Timeon 9 INR Coag (PPP) [Relative time] 1.0 {INR} Normal [facility] Comment on above: Result Comment: Warf levon Therapy INR Therapeutic: 2.0-3.0 With Mechanical Valve: >2.5 Low-intensity Therapeutic Range: 1.5-2.0 Mod-intensity Therapeutic Range: 2.0-3.0 High-intensity Therapeutic Range: 2.5-3.5 HIgh-intensity Therapeutic Range: 3.0-4.0 Common Critical/Alarm Value: 5.0 Common Upper Limit Reported: 10.0 Effective 01/17/2019: Please note methodology and/or reference ranges have changed. Performed By: #### P T #### [facility] [address] [place] [address] PT Coag (PPP) [Time] 13.0 s Normal 12.3-14.9 [facility] Comment on above: Result Comment: Effe ctive 01/17/19 Please note methodology and/or reference ranges have changed. Performed By: #### P T #### [facility] [address] [place] [address] Type and Screen Capture 3 sc rn cellon 02-08-2019 Type and Screen Capture 3 scrn cell PATIENT: RHINA Tarango LOC: [facility] BILL# : [id number] : 1990 SEX: M ORDERED BY: TJ Nicholson ORDERED : 02/08/2019 11:03 COLLECTED: 02/08/2019 11:13 ORDER : [id number] RECEIVED : 02/08/2019 11:13 TEST NAME RESULT UNITS RANGES ABN FL ST ABORH Capture A NEG F Antibody 3 Cell Scrn Captu NEG F Normal [facility] Comment on above: Performed By: #### T S3C #### [facility] [address] [place] [address] Vital Signs Date Time Vital Sign Value Performing Clinician Damon vogel 07-30-2024 13:35-0500 Body height 182.9 cm Roman Suarez MD Work Phone: [facility] [email or web address] [facility] 07-30-2024 13:35-0500 Body mass index (BMI) [Ratio] 38.44 kg/m2 [facility] 07-30-2024 13:35-0500 Body weight 128.55 kg Roman Suarez [facility] 07-30-2024 13:35-0500 Diastolic blood pressure 95 mm[Hg] Roman Suarez MD Work Phone: [facility] [place] 07-30-2024 13:35-0500 Heart rate 80 /min [facility] MD [email or web address] 07-30-2024 13:35-0500 Systolic blood pressure 146 mm[Hg] Roman Suarez MD Work Phone: [facility] Encounters Encounter Date Encounter Type Care Provider Facility Start: 07-30-2024 End: 07-30-2024 Office outpatient new 30 minutes Roman Suarez MD Work Phone: [facility] Comment on above: Sterilization consul t (Primary Dx) Start: 07-30-2024 End: 07-30-2024 ambulatory ROMAN SUAREZ [facility] Start: 09-06-2022 End: 09-06-[address] EMELIA LANGFORD . Facility:[facility] Start: 01-04-2022 End: 01-05-[address] EMELIA LANGFORD . Facility:[facility] Start: 02-14-2019 End: 02-14-2019 Patient encounter procedure PANCHO Gladys BELTRAN [facility] Start: 02-14-2019 End: 02-17-2019 Patient encounter procedure PANCHO BELTRAN [facility] Start: 02-14-2019 End: 02-16-2019 Subsequent hospital visit by physician Pancho Beltran Work Phone: [facility] Comment on above: Pain Start: 02-08-2019 End: 02-13-2019 Patient encounter procedure PANCHO BELTRAN [facility] Procedures Date Procedure Procedure Detail Performing Clinician Start: 02-14-2019 INCENTIVE SPIROMETRY RT PANCHO DEVIN Start: 02-14-2019 DISCHARGE PATIENT PANCHO YO O Start: 02-14-2019 FLUORO FOR SURGICAL PROCEDURES PANCHO DEVIN Start: 02-14-2019 INCENTIVE SPIROMETRY RT PANCHO DEVIN Start: 02-14-2019 Level iv surg pathol ogy gross&microscopic exam PANCHO DEVIN Start: 02-14-2019 ASSESS PANCHO DEVIN Start: 02-14-2019 BEDREST PANCHO DEVIN Start: 02-14-2019 Continuous pulse oximetry PANCHO DEVIN Start: 02-14-2019 ENCOURAGE DEEP BREAT KAYA AND COUGHING PANCHO DEVIN Start: 02-14-2019 INCENTIVE SPIROMETRY RT PANCHO DEVIN Start: 02-14-2019 NEURO/VASCULAR CHECKS B O DEVIN Start: 02-14-2019 NURSING COMMUNICATION B O DEVIN Start: 02-14-2019 FLUORO FOR SURGICAL PROCEDURES Pancho JudyKathe Beltran Work Phone: Start: 02-14-2019 DIET NPO, [...] Treatment Date Care Activity Detail Author Start: 07-30-2025 Adult BMI Screening Adult BMI Screen ing [facility] Start: 07-30-2025 Tobacco Screening Tobacco Screening [facility] Start: 03-10-2024 Influenza vaccination Influenza Vacc ine [facility] Start: 03-10-2019 Influenza vaccination Flu vaccine (# 1) [place], [place] Start: 03-05-2019 End: 03-05-2019 Office Visit 03/05/2019 Office Visit Neurosurgery Pancho Beltran MD [address], [address] [place], [place] [id number] [employer] Start: 2008 DTaP,Tdap and Td Vaccines (1 - Tdap) DTaP,Tdap and Td Vaccines (1 - Tdap) [facility] Start: 2008 DTaP/Tdap/Td vaccine (1 - Tdap) DTaP/Tdap/Td vaccine (1 - Tdap) [place], [place] Start: 2007 Adult BMI Follow Up Plan Adult BMI Follow Up Plan [facility] Start: 2004 HIV screen HIV screen [place], [place] Start: 2002 Varicella Vaccine (1 of 2 - 13+ 2-dose series) Varicella Vaccine (1 of 2 - 13+ 2-dose series) [place], [place] Start: 2001 Depression Screening Depression Scre ening [facility] Payers Date Payer Category Payer [employer] norman Managed Care - Other [facility] [id number] 2023 Unknown [id number] 2018 Unknown [employer] xxxxxxxxx 2018-Present [phone] [address] [place] [address] xxxxxxxxx [id number] 2018 Unknown [id number] 1990 Unknown [id number] 1989 Unknown [id number] 1989 Unknown [id number] 1989 Unknown [id number] 1989 Unknown [id number] 1989 Unknown [id number] 1960 Medicaid [id number] 1960 Unknown [id number] Social History Date Type Detail Facility Start: 02-08-2019 End: 07-30-2024 Tobacco smoking status NHIS Never smoker [place], [place] Start: 02-08-2019 End: 07-30-2024 Alcohol intake Yes [place] Start: 02-08-2019 Alcohol Comment social [place], [place] Start: 1990 Sex Assigned At Not on file [place] Start: 07-30-2024 Tobacco use and exposure Smokeless tobacco non-user [facility] Start: 07-30-2024 Alcoholic beverage intake Ex-drinker (finding) [facility] Start: 12-19-2018 End: 07-30-2024 History of Social function [facility] Childcare Unknown [facility] Start: 02-12-2015 Sex Male (finding) [facility] History of Present illness Narrative 07-30-2024 Roman Suarez MD - 07/30/2024 1:30 PM EST Note Date & Type Note Facility 07-30-2024 History of Presen t illness Narrative Images from the original note were not included. [address] [place] [address] A [facility] [address] Patient: Juanito Lantigua Date of : 1990 Encounter Date: 07/30/2024 History of Present Illness: The patient is a 34 y.o. male, a new patient, and is here for the discussion about getting a vasectomy.. Is single. Has one child Chief Complaint: On exam with bilateral palpable vas, normal testes Summary of old records: Urinalysis today: No results for input(s): EXTPOCURCO , EXTPOCURCH , EXTPOCAPP , EXTPOCURBS , EXTPOCURBIL , EXTPOCUKET , EXTPOCUSPG , EXTPOCUHGB , EXTPOCUPRO , EXTPOCUURO , EXTPOCULEU , EXTPOCUNIT , EXTPOCUWBC , EXTPOCUBLD , EXTPOCURBC , EXTPOCUCRY , EXTPOCUBAC , EXTPOCUTREP , EXTPOCUPH , EXTPOCULEE in the last 72 hours. Last BUN and creatinine: No results found for: BUN No results found for: CREATININE Last PSA: No results found for: PSA No results found for: PROSTATICSP Additional Lab/Culture results: None Imaging Reviewed during this Office Visit: None (Results were independently reviewed by physician and radiology report verified) Past Medical, Family, and Social History Update: The following portions of the patient's history were reviewed and updated as appropriate: allergies, current medications, past family history, past medical history, past social history, past surgical history and problem list. Past Medical History: Diagnosis Date Hypothyroidism 2014 Ringworm 06/2024 Past Surgical History: Procedure Laterality Date BACK SURGERY 2018 History reviewed. No pertinent family history. Current Outpatient Medications Medication Sig Dispense Refill levothyroxine (SYNTHROID, LEVOTHROID) 150 MCG tablet Take 1 tablet (150 mcg total) by mouth in the morning. liothyronine (CYTOMEL) 25 MCG tablet Take 1 tablet (25 mcg total) by mouth in the morning. No current facility-administered medications for this visit. (All medications reviewed and updated by provider since last office visit or hospitalization) Allergies: Poison veda extract Tobacco History: Social History Tobacco Use Smoking Status Never Smokeless Tobacco Never (If patient a smoker, smoking cessation counseling offered) Social History: Social History Substance and Sexual Activity Alcohol Use Not Currently Review of Systems: Constitutional: Normal activity and energy. Patient denies change in appetite, weight loss or gain, malaise (depression), chills, fever, or diaphoresis (sweating). Eyes: Patient denies vision changes or diplopia (double vision). Ears, Nose, Nose and Throat: Tinnitus (ringing in ears) Respiratory: Patient denies dyspnea (shortness of breath), cough, hemotypsis (blood in sputum), and wheezing. Cardiovascular: Patient denies chest pain, palpitations, and shortness of breath. Gastrointestinal: Patient denies abdominal pain, nausea, vomiting, bloating, diarrhea (chronic), constipation (chronic), melena (black stool), hematochezia (blood in stool). Musculoskeletal: Joint pain/stiffness and Backache Neurologic: Patient denies weakness, dizziness, loss of consciousness, transient ischemic symptoms, and seizures. Integument: Rashes Psychiatric: Patient denies increased nervousness, mood changes, or depression. Endocrine: Thyroid trouble and Excessive urination Blood Disorders: Patient denies anemia, easy bruising, and easy bleeding. Physical Exam: BP (!) 146/95 Pulse 80 Ht 182.9 cm (6') Wt 128.5 kg (283 lb 6.4 oz) BMI 38.44 kg/m Assessment and Plan: Juanito was seen today for sterilization. Diagnoses and all orders for this visit: Sterilization consult Problem List Other Sterilization consult - Primary Overview The risks, benefits, alternatives, and complications of vasectomy were discussed with the the patient (and those present with him) based on the AUA guidelines. This included: Vasectomy is intended to be a permanent form of contraception. Vasectomy does not produce immediate sterility. Following vasectomy, another form of contraception is required until vas occlusion is confirmed by post- vasectomy semen analysis (PVSA). First specimen is requested 2 months after the procedure and he would need 1-specimen prior to stopping alternative forms of contraception. Even after vas occlusion is confirmed, vasectomy is not 100% reliable in preventing . The risk of after vasectomy is approximately 1 in 2,000 for men who have post-vasectomy azoospermia or PVSA showing rare non-motile sperm (RNMS). Repeat vasectomy is necessary in <=1% of vasectomies, provided that a technique for vas occlusion known to have a low occlusive failure rate has been used. Patients should refrain from ejaculation for approximately one week after vasectomy. Options for fertility after vasectomy include vasectomy reversal and sperm retrieval with in vitro fertilization. These options are not always successful, and they may be expensive. The rates of surgical complications such as symptomatic hematoma and infection are 1-2%. Chronic scrotal pain associated with negative impact on quality of life occurs after vasectomy in about 1-2% of men. Few of these men require additional surgery. Other permanent and non-permanent alternatives to vasectomy are available. Men or their partners should use other contraceptive methods until vasectomy success is confirmed by PVSA. He expressed an understanding and would like to proceed. Follow-up: Roman Suarez MD This note was created with the assistance of a speech recognition program. While intending to generate a timely document that accurately reflects the content of the visit, no guarantee can be provided that every grammatical or spelling mistake has been or will be identified or corrected. Thank you for your understanding. documented in this encounter [facility] Evaluation note Note Date & Type Note Facility Evaluation note Diagnosis Sterilization consult- Primary Other general counseling and advice for contraceptive management documented in this encounter [facility] Instructions Note Date & Type Note Facility Instructions Not on filedocumented in this en counter [facility] Reason for Referral Status Reason Specialty Diagnoses / Procedures Referre d By Contact Referred To Contact [facility] Diagnoses Pain Procedures Fluoro For Surgical Procedures Pancho Beltran MD [address], [address] [place] [address] Assessments Diagnosis Pain Generalized pain Advance Directives No Advanced Directives Records FoundDocuments on File Type Date Recorded Patient Specification Writer Expl anation Advance Directives and Living Will Power of Clearing Inspector Summary Purpose Family History No Family History Records FoundNo Family History Records FoundNo Family History Records Found Additional Source Comments Reason for Visit (unrecogniz ed section and content) Status Reason Specialty Diagnoses / Procedures Re ferred By Contact Referred To Contact Diagnoses DISC HERNIATION, RADICULOPATHY, DEGENERATIVE DISC DISEASE Procedures PATEL W/O FACETEC FORAMOT/DSKC 07/11 VRT SEG, LUMBAR L5-S1 MICRODISKECTOMY 1 HOUR/ 1 C-ARM/ X-TUBE/ SCOPE Pancho Beltran MD [address] [place] [address] [facility] Reason Comments Sterilization (unrecognized sect ion and content) No Status Records FoundNo Status Records FoundNo Status Records Found INFORMATION SOURCE (unrecogn ized section and content) DATE CREATED AUTHOR 02/23/2019 [facility] DATE CREATED AUTHOR AUTHOR'S ORGANIZ ATION 09/14/2022 [facility] DATE CREATED AUTHOR AUTHOR'S ORGANIZ ATION 08/01/2024 [facility] FOR RECORDS PERTAINING TO PATIENTS WHO ARE [...] BE BASED ON THE PRIMARY CLINICAL RECORDS. [facility] [employer] [place] provides no warranty or guarantee of the accuracy or completeness of information in this document.
[2024-08-02 13:20] LABS: Free T3 2.78 pg/mL (2.18-3.98); Thyroid Stimulating Hormone 5.153 uIU/mL (0.358-3.740)
== END 2024-08-02 12:13 | disposition home or self-care (01) ==
LOC: LAB 12:14
PROVIDERS: PCP Family Medicine; Visit Provider Family Medicine
DX: E03.9 Hypothyroidism, unspecified (principal)
CPT/HCPCS: 36415; 84436; 84443; 84481